=== PATIENT | male | born 1955 | race Caucasian/White ===

== ENCOUNTER 2016-09-28 23:18 | Emergency (ER) | payer MEDICAID ==
[~2016-09-28] VITALS: Ht 167.6 cm; Wt 78.0 kg
[2016-09-28 23:24] VITALS: Ht 167.6 cm; Wt 78.0 kg
[2016-09-28] MEDS ORDERED: KETOROLAC 30 MG INJ IM STA (23:40)
[2016-09-29 00:23] LABS: ADD SCAN DIFF NO
[2016-09-29 00:30] LABS: BASOPHILS % 0.4 % (0.0-2.0); EOSINOPHILS # 0.4 10^3/ul (0.0-0.5); EOSINOPHILS % 4.9 % (0.0-7.0); HEMATOCRIT 40.2 % (42.0-52.0); LYMPHOCYTES # 2.4 10^3/ul (0.8-2.9); LYMPHOCYTES % 27.8 % (15.0-51.0); MEAN CORPUSCULAR HEMOGLOBIN 31.1 pg (29.0-33.0); MEAN CORPUSCULAR HGB CONC 34.8 g/dl (32.0-37.0); MEAN CORPUSCULAR VOLUME 89.3 fl (82.0-101.0); MEAN PLATELET VOLUME 11.4 fl (7.4-10.4); MONOCYTE # 0.8 10^3/ul (0.3-0.9); MONOCYTES % 9.4 % (0.0-11.0); NEUTROPHIL # 4.9 10^3/ul (1.6-7.5); NEUTROPHILS % 57.1 % (39.0-77.0); PLATELET COUNT 227 10^3/UL (140-415); RED CELL DISTRIBUTION WIDTH 12.3 % (11.5-14.5); WHITE BLOOD COUNT 8.5 10^3/ul (4.8-10.8)
[2016-09-29 00:56] LABS: ALBUMIN 4.7 g/dl (3.3-4.9); ALBUMIN/GLOBULIN RATIO 1.46; BILIRUBIN,INDIRECT 0.3 mg/dl (0-1.1); BILIRUBIN,TOTAL 0.3 mg/dl (0.2-1.3); CALCIUM 9.5 mg/dl (8.4-10.2); CREATININE 0.67 mg/dl (0.61-1.24); POTASSIUM 3.4 mmol/L (3.5-5.1); TOTAL PROTEIN 7.9 g/dl (6.1-8.1)
[2016-09-29 01:02] LABS: ADD UMIC YES; UR ASCORBIC ACID 40 mg/dL (NEGATIVE); UR BILIRUBIN (Dip) NEGATIVE (NEGATIVE); UR BLOOD (Dip) 1+ mg/dL (NEGATIVE); UR CLARITY CLEAR (CLEAR); UR COLOR YELLOW (YELLOW); UR GLUCOSE (Dip) NEGATIVE (NEGATIVE); UR KETONES (Dip) NEGATIVE (NEGATIVE); UR LEUKOCYTE ESTERASE (Dip) NEGATIVE Leu/ul (NEGATIVE); UR MUCUS FEW /HPF (NONE SEEN); UR NITRITE (Dip) NEGATIVE (NEGATIVE); UR RBC 14 /HPF (0-5); UR SPECIFIC GRAVITY (Dip) 1.029 (1.003-1.030); UR TOTAL PROTEIN (Dip) NEGATIVE (NEGATIVE); UR UROBILINOGEN (Dip) NEGATIVE (NEGATIVE)
--- NOTE | 2016-09-29 02:12 | RADRPT ---
PROCEDURE: CT abdomen and pelvis without contrast. CLINICAL INDICATION: Abdomen pelvis with back pain. Dysuria. TECHNIQUE: Noncontrast CT examination of the abdomen and pelvis, with axial, sagittal and coronal re formatted images. CTDI: 15.38 mGy and DLP: 1001.47 mGy-cm. COMPARISON: None. FINDINGS: CT abdomen: The lung bases are clear. The heart size is normal, without pericardial thickening or effusion. The liver is normal in size and density without focal mass or intrahepatic biliary dilatation. The spleen is normal in size and homogeneous in density. The stomach is partially collapsed, but is abigail ssly unremarkable. The pancreas as visualized is normal. The gallbladder and biliary tree are unre markable and there is no evidence for biliary dilatation. The adrenal glands are symmetric and norm al. Posterior mid pole left renal cyst measures up to 30 3 mm. Otherwise, the kidneys are symmetri rossi unremarkable as well. No renal calculus or obstructive uropathy or mass lesion is seen. The aorta is of normal caliber. Aortic vascular calcifications are mild. There is no retroperitone al lymphadenopathy. The lazaro hepatis region is clear. The bowel and mesentery, as visualized, are equally unremarkable. CT pelvis: The small bowel loops situated within the pelvis are unremarkable. Possible anterior urinary bladder wall mass measuring 47 x 30 x 28 mm. On this noncontrast examinat ion this is only slightly distinguishable from the urinary contents of the bladder and is difficult to visualize. Recommend IV contrast enhanced examination of abdomen and pelvis for further evaluati on. Mild increased attenuation of urine within the bladder may represent a degree of hemorrhage. Th is is not clear. Nonspecific dystrophic calcifications in the nonenlarged prostate. The pelvic organs are otherwise normal. The pelvic sidewalls and inguinal regions are clear. The sigmoid colon and rectum are all unremarkable. No mass, lymphadenopathy, or free fluid is seen. No acute inflammation is seen. The appendix is unremarkable. Moderate left inguinal herniation of fat. Region of fat herniation measures about 2 cm x 2 cm and is about 12 cm in length, extending to the upper scrotum. The surrounding osseous structures are remarkable for mild degenerative spondylosis of the spine. N o osteolytic or osteoblastic lesion is detected. IMPRESSION: 1. Question 47 mm anterior urinary bladder wall mass, which is suboptimally visualized on this nonc ontrast examination. 2. Recommend IV contrast enhanced CT examination of the abdomen and pelvis for further evaluation. 3. Moderate left inguinal hernia contains fat, extending to the level of the scrotum. 4. No obstructive uropathy. RPTAT: [facility] Physician Sergio Date Time Electronically viewed and signed by Michaela Clarke Physician on 09/29/2016 02:12 RS/
[2016-09-29] MEDS ORDERED: DIAZ-90 PO (02:26)
[2016-09-29] MEDS ORDERED: NAPR-688 PO (02:26)
--- NOTE | 2016-09-29 02:48 | ERD ---
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 Patient states the pain is around 9 out of 10 and increased with movement. Patient admits to having also one episode of painful urination yesterday. He denies any hematuria, fever. Patient denies taking any medications for this. He states that he is able to ambulate. ROS All systems reviewed and are negative except as per history of present illness. Medications Home Meds Active Scripts Diazepam* (Valium*) 5 Mg Tablet, 5 MG PO Q8 Y for MUSCLE SPASMS, #20 TAB Prov:PHILIP PEDERSON PA-C 09/29/16 Naproxen* (Naproxen*) 500 Mg Tablet, 500 MG PO BID Y for PAIN, #20 TAB Prov:PHILIP PEDERSON PA-C 09/29/16 Allergies Allergies: Coded Allergies: No Known Allergy (Unverified , 09/28/16) PMhx/Soc Medical and Surgical Hx: pt denies Medical Hx, pt denies Surgical Hx History of Surgery: No Hx Neurological Disorder: No Hx Respiratory Disorders: No Hx Cardiac Disorders: No Hx Psychiatric Problems: No Hx Miscellaneous Medical Probl: No Hx Alcohol Use: No Hx Substance Use: No Hx Tobacco Use: No Smoking Status: Never smoker Physical Exam Vitals Vital Signs Date Time Temp Pulse Resp B/P Pulse Ox O2 Delivery O2 Flow Rate FiO2 09/28/16 23:24 98.2 65 20 167/81 98 Physical Exam GENERAL: WD/WN, in no apparent distress, non-toxic appearing HENT: NC/AT EYES: Conjunctiva normal NECK: Supple PULM: Normal labored breathing CV: Good capillary refill GI: Non-distended, no guarding BACK: no deformities noted, normal spinal curvature, TTP on lumbar region bilaterally, non-tender on spine midline, EXT: No clubbing, cyanosis, or edema NEURO: Moves on all fours, sensation intact, normal gait SKIN: intact PSYCH: Normal mood Result Diagram: 09/29/16 0002 09/29/16 0002 Results 24 hrs Laboratory Tests Test 09/29/16 00:00 09/29/16 00:02 Urine Color YELLOW Urine Clarity CLEAR Urine pH 5.0 Urine Specific [place] 1.029 Urine Ketones NEGATIVEmg/dL Urine Nitrite NEGATIVEmg/dL Urine Bilirubin NEGATIVEmg/dL Urine Urobilinogen NEGATIVEmg/dL Urine Leukocyte Esterase NEGATIVELeu/ul Urine Microscopic RBC 14/HPF Urine Microscopic WBC 1/HPF Urine Mucus FEW/HPF Urine Hemoglobin 1+mg/dL Urine Glucose NEGATIVEmg/dL Urine Total Protein NEGATIVEmg/dl White Blood Count 8.510^3/ul Red Blood Count 4.5010^6/ul Hemoglobin 14.0g/dl Hematocrit 40.2% Mean Corpuscular Volume 89.3fl Mean Corpuscular Hemoglobin 31.1pg Mean Corpuscular Hemoglobin Concent 34.8g/dl Red Cell Distribution Width 12.3% Platelet Count 25714^3/UL Mean Platelet Volume 11.4fl Neutrophils % 57.1% Lymphocytes % 27.8% Monocytes % 9.4% Eosinophils % 4.9% Basophils % 0.4% Nucleated Red Blood Cells % 0.0/100WBC Neutrophils # 4.910^3/ul Lymphocytes # 2.410^3/ul Monocytes # 0.810^3/ul Eosinophils # 0.410^3/ul Basophils # 0.010^3/ul Nucleated Red Blood Cells # 0.010^3/ul Sodium Level 142mmol/L Potassium Level 3.4mmol/L Chloride Level 105mmol/L Carbon Dioxide Level 24mmol/L Anion Gap 16 Blood Urea Nitrogen 16mg/dl Creatinine 0.67mg/dl Glucose Level 128mg/dl Calcium Level 9.5mg/dl Total Bilirubin 0.3mg/dl Direct Bilirubin 0.00mg/dl Indirect Bilirubin 0.3mg/dl Aspartate Amino Transf (AST/SGOT) 30IU/L Alanine Aminotransferase (ALT/SGPT) 47IU/L Alkaline Phosphatase 86IU/L Total Protein 7.9g/dl Albumin 4.7g/dl Globulin 3.20g/dl Albumin/Globulin Ratio 1.46 Current Medications Medications (Trade) Dose Ordered Sig/Demetria Route PRN Reason Start Time Stop Time Status Last Admin Dose Admin Ketorolac Tromethamine (Toradol) 30 mg ONCE STAT IM 09/28/16 23:40 09/28/16 23:42 DC 09/29/16 00:11 Procedures/[facility] This is a 61-year-old male presenting to the emergency department complaining of lumbar back pain status post picking up a heavy machinery 3 days prior to being seen which is likely due to lumbar strain. However patient states that he had an episode of painful urination yesterday. On examination, patient did not have any CVA tenderness or signs or symptoms of pyelonephritis or nephrolithiasis but her workup was done to rule it out. Urinalysis did show evidence of hemoglobin. Lab work was drawn. CBC did not show any evidence of leukocytosis or anemia. CMP did not show any evidence of renal, liver, or electrolyte abnormalities. Lipase was normal. UA did not show any evidence of hemoglobin or urinary tract infection. CT of the abdomen and pelvis without contrast was done and radiologist stated: 1. Question 47 mm anterior urinary bladder wall mass, which is suboptimally visualized on this noncontrast examination. 2. Recommend IV contrast enhanced CT examination of the abdomen and pelvis for further evaluation. 3. Moderate left inguinal hernia contains fat, extending to the level of the scrotum. 4. No obstructive uropathy. I discussed this case with Dr. Curiel who suggested that patient is still able to be discharged home and can follow up with a urologist in regards to the anterior urinary bladder wall mass that was found on CT. I have given patient a lengthy discussion in regards diagnostic testing and he states that he will be able to follow-up with his primary care physician tomorrow. Patient appears well and stable to be discharged home with precautions to return to the emergency department for any worsening signs or symptoms. Prescription for naproxen and Valium was provided for the lumbar strain. He understands and agrees with this plan Departure Diagnosis: Primary Impression: Low back strain Encounter type: initial encounter Qualified Code: S39.012A - Low back strain , initial encounter Additional Impression: Mass of urinary bladder Condition: Stable Patient Instructions: Causes of Lumbar (Low Back) Pain, Muscle Spasm Additional Instructions: Visite a chandler mdico miguelana para un EXAMEN.Regrese a estas instalaciones si no se mejora ab esperbamos o ab le dijimos. Specialist:Usted tiene andry condicin mdica que requiere que izaiah a un especialista dentro de los prximos 1-2 huang.POR FAVOR,CON CHANDLER SEGUIMIENTO DE PRIMARIA PHSICIAN refferal. SI USTED NO TIENE UN MDICO GENERAL Y / O USTED NO PUEDE PAGAR jayden a un mdico,los siguientes ramos RECURSOS sido suministrado a usted. ES CHANDLER RESPONSABILIDAD PARA SER VISTOS POR EL ESPECIALISTA: [place] toda la medicina michael y ab se le indic. Regrese a estas instalaciones si no se mejora ab esperbamos o ab le dijimos. PHILIP PEDERSON PA-C Sep 29, 2016 02:48
[2016-09-29 02:51] VITALS: BP 178/68; PULSE 62; RESP 20; TEMP 98.6
== END 2016-09-29 02:58 | disposition home or self-care (01) ==
LOC: FTE 23:18
DX: S39.012A Strain of muscle, fascia and tendon of lower back, initial encounter (principal); N32.89 Other specified disorders of bladder; X50.0XXA Overexertion from strenuous movement or load, initial encounter; Y92.9 Unspecified place or not applicable
CPT/HCPCS: 36415; 74176; 80053; 81001; 85025; 96372; J1885; Z7502